=== PATIENT | male | born 1955 | race Caucasian/White ===

== ENCOUNTER → 2024-06-28 15:04 | Outpatient (REF) | payer MEDICARE, OTHER, SELFPAY | LOC: HWRAD 15:04 | PROVIDERS: ATTENDING PHYSICIAN Internal Medicine; FAMILY PHYSICIAN Internal Medicine | DX: R10.9 Unspecified abdominal pain (principal) | CPT/HCPCS: 72072 ==

== ENCOUNTER → 2025-04-16 09:53 | Outpatient (REF) | payer MEDICARE, OTHER, SELFPAY | LOC: PAVMRI 09:53 | PROVIDERS: ATTENDING PHYSICIAN Physician Assistant; FAMILY PHYSICIAN Internal Medicine | DX: M54.16 Radiculopathy, lumbar region (principal) | CPT/HCPCS: 72148 ==

== ENCOUNTER 2025-08-02 06:18 | Day surgery (SDC) | payer MEDICARE, OTHER, SELFPAY | END 2025-08-02 09:47 | disposition home or self-care (01) | LOC: GI 06:18 | PROVIDERS: ATTENDING PHYSICIAN Internal Medicine | DX: D12.3 Benign neoplasm of transverse colon (principal); K62.1 Rectal polyp; K64.8 Other hemorrhoids | CPT/HCPCS: 45385; 45380; 88305 ==